=== PATIENT | female | born 1970 | race African-American/Black ===

== ENCOUNTER 2016-04-14 23:15 | Emergency (ER) | payer OTHER ==
[~2016-04-14] VITALS: Ht 160 cm; Wt 95.0 kg
[~2016-04-14 23:15] MED LIST: BUPR150SR PO; METR500 PO
[2016-04-15] MEDS ORDERED: ALPR0.5T8 PO (00:14)
[2016-04-15] MEDS ORDERED: LISI-661 PO (00:14)
[2016-04-15] MEDS ORDERED: DOXYCYCLINE 100 MG CAPSULE PO ONE (03:45)
[2016-04-15] MEDS ORDERED: CefTRIAXone SODIUM 1 GM/VIAL IM ONE (03:45)
[2016-04-15] MEDS ORDERED: LIDOCAINE HCL/PF 1% 2 ML VIAL IM ONE (03:45)
[2016-04-15 04:10] VITALS: BP 128/85
== END 2016-04-15 04:19 | disposition home or self-care (01) ==
LOC: EMS 23:16
DX: N61.1 Abscess of the breast and nipple (principal); I10 Essential (primary) hypertension; F41.9 Anxiety disorder, unspecified; F17.210 Nicotine dependence, cigarettes, uncomplicated; Z88.1 Allergy status to other antibiotic agents
CPT/HCPCS: 81025; 96372; 99284; 99406; J0696; J3490

== ENCOUNTER 2016-09-30 03:06 | Emergency (ER) | payer OTHER ==
[~2016-09-30] VITALS: Ht 162.6 cm; Wt 115.9 kg
[~2016-09-30 03:06] MED LIST changes: +ALPR0.5T8 PO; +LISI-661 PO; -METR500 PO
[2016-09-30 03:44] LABS: BASOPHILS % (AUTO) 0.5 % (0.0-2.0); EOSINOPHILS % (AUTO) 2.6 % (1.0-6.0); HEMATOCRIT 42.5 % (36-46); HEMOGLOBIN 14.2 g/dL (12.0-16.0); LYMPHOCYTES # (AUTO) 2.9 K/uL (1.0-4.8); LYMPHOCYTES % (AUTO) 35.9 % (22.0-44.0); MEAN CORPUSCULAR HEMOGLOBIN 27.6 pg (26.0-34.0); MEAN CORPUSCULAR HGB CONC 33.5 G/dL (31.0-37.0); MEAN CORPUSCULAR VOLUME 82 fL (80-100); MONOCYTES # (AUTO) 0.4 K/uL (0.1-1.0); MONOCYTES % (AUTO) 5.2 % (2.0-9.0); NEUTROPHILS # (AUTO) 4.6 K/uL (1.8-7.7); NEUTROPHILS % (AUTO) 55.8 % (40.0-70.0); PLATELET COUNT (AUTO) 264 K/uL (150-450); RED BLOOD CELL COUNT(AUTO) 5.15 MIL/uL (4.00-5.20); RED CELL DISTRIBUTION WIDTH 14.5 % (11.5-14.5); WHITE BLOOD COUNT (AUTO) 8.2 K/uL (4.5-11.0)
[2016-09-30 03:50] LABS: ANION GAP 10 mmol/L (8-16); CALCIUM, TOTAL 9.1 mg/dL (8.8-10.5); CARBON DIOXIDE 27 mmol/L (22-29); CHLORIDE 102 mmol/L (98-107); CREATININE 1.06 mg/dL (0.60-1.30); GLOMERULAR FILTR. RATE CALC > 60 mL/min (>60); POTASSIUM 4.1 mmol/L (3.5-5.1); SODIUM SERUM 139 mmol/L (136-145); UREA NITROGEN, BLOOD 18 mg/dL (7-18)
[2016-09-30 03:55] LABS: ALANINE AMINOTRANSFERASE 26 U/L (12-78); ALBUMIN 3.6 g/dL (3.4-5.0); ASPARTATE AMINOTRANSFERASE 12 U/L (15-37); BILIRUBIN,TOTAL 0.3 mg/dL (0.1-1.0); TOTAL PROTEIN, SERUM 8.2 g/dL (6.4-8.2)
[2016-09-30] MEDS ORDERED: BARIUM SULFATE 0.1% SUSPENSION 450 ML BOTTLE PO ONE (04:30)
[2016-09-30] MEDS ORDERED: HYDROmorphone 2 MG/ML SYRINGE IVP ONE (04:30)
[2016-09-30] MEDS ORDERED: ONDANSETRON HCL 4 MG/2 ML VIAL IVP ONE (04:30)
[2016-09-30] MEDS ORDERED: SODIUM CHLORIDE 0.9% 1,000 ML IV ONE (04:30)
[2016-09-30] MEDS ORDERED: IOVERSOL 350 MG/ML 150 ML VIAL ONE (05:24)
[2016-09-30] MEDS ORDERED: SODIUM CHLORIDE 0.9% 100 ML ONE (05:25)
[2016-09-30 07:10] VITALS: BP 120/85
== END 2016-09-30 07:33 | disposition home or self-care (01) ==
LOC: EMS 03:07
DX: R10.12 Left upper quadrant pain (principal); R05 Cough; R09.81 Nasal congestion; I10 Essential (primary) hypertension; F17.210 Nicotine dependence, cigarettes, uncomplicated; Z88.2 Allergy status to sulfonamides
CPT/HCPCS: 36415; 71010; 74177; 80053; 81002; 83690; 84484; 84703; 85025; 93005; 96361; 96374; 96375; 99285; 99406; J1170; J2405; J7050; Q9967; Z7610

== ENCOUNTER 2021-08-10 03:29 | Emergency (ER) | payer OTHER ==
[~2021-08-10] VITALS: Ht 162.6 cm; Wt 100.0 kg
[~2021-08-10 03:29] MED LIST changes: +ALPR-707 PO; -ALPR0.5T8 PO; +BUPR-290 PO; -BUPR150SR PO; -LISI-661 PO; +LISI-893 PO
[2021-08-10] MEDS ORDERED: ACETAMINOPHEN 500 MG TABLET PO ONE (03:45)
[2021-08-10 03:53] LABS: BASOPHILS % (AUTO) 0.7 % (0.0-2.0); EOSINOPHILS % (AUTO) 3.9 % (1.0-6.0); HEMATOCRIT 41.9 % (36-46); HEMOGLOBIN 14.3 g/dL (12.0-16.0); LYMPHOCYTES # (AUTO) 2.8 K/uL (1.0-4.8); LYMPHOCYTES % (AUTO) 49.9 % (22.0-44.0); MEAN CORPUSCULAR HEMOGLOBIN 27.1 pg (26.0-34.0); MEAN CORPUSCULAR VOLUME 80 fL (80-100); MONOCYTES # (AUTO) 0.3 K/uL (0.1-1.0); MONOCYTES % (AUTO) 6.1 % (2.0-9.0); NEUTROPHILS # (AUTO) 2.2 K/uL (1.8-7.7); NEUTROPHILS % (AUTO) 39.4 % (40.0-70.0); PLATELET COUNT (AUTO) 207 K/uL (150-450); RED BLOOD CELL COUNT(AUTO) 5.25 MIL/uL (4.00-5.20); RED CELL DISTRIBUTION WIDTH 14.8 % (11.5-14.5)
[2021-08-10 04:01] LABS: ANION GAP 7 mmol/L (8-16); CARBON DIOXIDE 26 mmol/L (22-29); CHLORIDE 102 mmol/L (98-107); CREATININE 0.91 mg/dL (0.60-1.30); GLUCOSE,RANDOM 113 mg/dL (70-110); POTASSIUM 3.6 mmol/L (3.5-5.1); SODIUM SERUM 135 mmol/L (136-145); UREA NITROGEN, BLOOD 12 mg/dL (7-18)
[2021-08-10 04:05] LABS: GLOMERULAR FILTR. RATE CALC > 60 mL/min (>60)
[2021-08-10 04:15] LABS: ALANINE AMINOTRANSFERASE 24 U/L (12-78); ALBUMIN 3.5 g/dL (3.4-5.0); ALKALINE PHOSPHATASE 86 U/L (46-116); ASPARTATE AMINOTRANSFERASE 14 U/L (15-37); B-TYPE NATRIURETIC PEPTIDE 8 pg/mL (0-100); BILIRUBIN,TOTAL 0.4 mg/dL (0.1-1.0); CREATINE KINASE, TOTAL ONLY 92 U/L (26-192); HCG,QUANTITATIVE 1 mIU/mL (0-6); TOTAL PROTEIN, SERUM 7.6 g/dL (6.4-8.2)
[2021-08-10] MEDS ORDERED: SODIUM CHLORIDE 0.9% 100 ML ONE (04:25)
[2021-08-10] MEDS ORDERED: IOHEXOL 350 MG/ML 150 ML VIAL ONE (04:26)
[2021-08-10] MEDS ORDERED: LORazepam 2 MG/ML VIAL IVP ONE (04:30)
[2021-08-10 06:51] VITALS: BP 134/92
== END 2021-08-10 07:25 | disposition home or self-care (01) ==
LOC: EMS 03:32
DX: R07.89 Other chest pain (principal); I10 Essential (primary) hypertension; F17.210 Nicotine dependence, cigarettes, uncomplicated; F41.9 Anxiety disorder, unspecified; Z88.2 Allergy status to sulfonamides
CPT/HCPCS: 36573; 80053; 82550; 83880; 84484; 84702; 85025; 85379; 36415; 71275; 99285; 93005; 96374; 71045; J2060; Q9967; J7050